=== PATIENT | female | born 1950 | race Caucasian/White ===

== ENCOUNTER → 2023-01-23 | Outpatient (CLI) | payer MEDICARE, SELFPAY ==
--- NOTE | 2023-01-23 12:41 | ECHOD_ITS ---
Reason For Study: PALPITATIONS Procedure This was a 2D Doppler, Color Flow transthoracic echocardiogram. Exam performed in department. Left Ventricle Normal LV size. Left ventricular systolic function is normal. The estimated ejection fraction is 60 %. Stage 1 diastolic dysfunction. No regional wall motion abnormalities noted. Right Ventricle Normal right ventricle. Normal systolic function. Atria Normal left atrium. Normal right atrium. Hypermobile atrial septum. Mitral Valve Normal mitral valve. Tricuspid Valve Normal tricuspid valve. Mild tricuspid valve insufficiency. Pulmonary artery systolic pressure is 24 mmHg. Aortic Valve Normal aortic valve. Trisinus/trileaflet aortic valve. Pulmonic Valve Normal pulmonic valve. Great Vessels Normal aortic root. The pulmonary artery is normal size. Normal inferior vena cava. Pericardium/Pleural No pericardial effusion. MMode/2D Measurements & Calculations LVIDd: 4.5 cm IVSd: 0.79 cm LVOT diam: 1.9 cm LVIDs: 2.8 cm LVPWd: 0.67 cm LVOT area: 2.9 cm2 RVDd: 2.8 cm FS: 37.8 % Ao root diam: 3.1 cm LAV(MOD-bp): 36.9 ml LVAd ap4: 18.3 cm2 LAV(MOD-bp) Indexed: 22.7 ml/m2 LVLd ap4: 6.4 cm LAV(MOD-sp2): 43.5 ml EDV(MOD-sp4): 44.9 ml LAV(MOD-sp4): 31.1 ml EDV(sp4-el): 44.7 ml LVAs ap4: 10.6 cm2 LVLs ap4: 5.5 cm ESV(MOD-sp4): 17.4 ml ESV(sp4-el): 17.2 ml EF(MOD-sp4): 61.3 % EF(sp4-el): 61.5 % LVAd ap2: 18.2 cm2 SV(MOD-sp4): 27.6 ml SV(MOD-sp2): 24.9 ml LVLd ap2: 6.5 cm EDV(MOD-sp2): 42.7 ml EDV(sp2-el): 43.4 ml LVAs ap2: 10.9 cm2 LVLs ap2: 5.9 cm ESV(MOD-sp2): 17.7 ml ESV(sp2-el): 17.3 ml EF(MOD-sp2): 58.4 % SV(sp4-el): 27.5 ml LA dimension(2D): 3.9 cm LA A4 area: 13.9 cm2 RA A4 area: 10.7 cm2 TAPSE: 1.7 cm Time Measurements MV dec time: 0.17 sec Doppler Measurements & Calculations MV E max hank: 48.9 cm/sec Lat Peak E' Hank: 9.0 cm/sec Med Peak E' Hank: 5.9 cm/sec MV A max hank: 79.3 cm/sec E/E' lat: 5.4 E/E' med: 8.4 MV E/A: 0.62 Ao V2 max: 112.1 cm/sec LV V1 max: 86.5 cm/sec MV dec slope: 292.4 cm/sec2 Ao max P.0 mmHg LV V1 max P.0 mmHg Ao V2 mean: 80.3 cm/sec LV V1 mean P.7 mmHg Ao mean P.9 mmHg LV V1 mean: 61.5 cm/sec Ao V2 VTI: 24.4 cm LV V1 VTI: 17.3 cm AV (velocity ratio): 0.71 RADHA(I,D): 2.1 cm2 RADHA(V,D): 2.3 cm2 SV(LVOT): 50.7 ml PA V2 max: 75.8 cm/sec TR max hank: 225.4 cm/sec PA max PG (full): 0.26 mmHg TR max P.3 mmHg ECHO/Echo Complete Interpretation Summary Hypermobile atrial septum. Normal LV size. Left ventricular systolic function is normal. The estimated ejection fraction is 60 %. Stage 1 diastolic dysfunction. Ordering Physician: Ruben Leong Referring Physician: Ruben Leong MD Performed By: Jaelyn Mnotgomery RDCS
== END | disposition home or self-care (01) ==
PROVIDERS: PCP Family Medicine; Referring Provider Internal Medicine Cardiovascular Disease; Visit Provider Internal Medicine Cardiovascular Disease
DX: R00.2 Palpitations (principal)
CPT/HCPCS: 93225; 93226; 93306